=== PATIENT | female | born 1965 | race Caucasian/White ===

== ENCOUNTER → 2016-12-01 | Outpatient (CLI) | payer OTHER ==
[~2016-12-01] MED LIST: ACHYD1T PO; DCS100C PO; ESTR1TAB24 PO; FEXO-104 PO; IBP800T PO
--- NOTE | 2016-12-01 19:27 | Diagnostic Imaging Report ---
Bilateral screening mammogram The current study was also evaluated with a Computer Aided Detection (CAD) system. INDICATION: Screening. No current complaints stated on the questionnaire. COMPARISON: 11/27/2015. FINDINGS: The breasts are composed of scattered fibroglandular densities. There are punctate calcifications seen. Subcentimeter circumscribed mass in the outer aspect of the right breast is noted. Similarly, a smaller nodule is also seen in the lateral aspect of the left breast. Both are stable from prior exams and are likely related to benign etiology such as intramammary lymph nodes. Allowing for technique and positional differences, no suspicious change is seen. IMPRESSION: No significant change. ACR BI-RADS Category 2: Benign findings. Result letter will be mailed to the patient. Note: At least 10% of breast cancer is not imaged by mammography. Dictated by: Dictated on workstation # [id number]
== END ==
LOC: RAD 09:08
PROVIDERS: ATTEND Obstetrics & Gynecology
DX: Z12.31 Encounter for screening mammogram for malignant neoplasm of breast (principal)

== ENCOUNTER → 2017-12-19 | Outpatient (CLI) | payer OTHER ==
--- NOTE | 2017-12-20 09:25 | Diagnostic Imaging Report ---
INDICATION: Routine screening. Comparison is made with prior exam from 12/01/2016 and 11/27/2015. The current study was also evaluated with a Computer Aided Detection (CAD) system. Mild parenchymal densities noted bilaterally. Well-defined nodules in the upper outer aspects of both breasts are noted, stable in size and most consistent with intramammary lymph nodes. No spiculated mass or malignant appearing microcalcifications are seen. The axillae are unremarkable. IMPRESSION: BI-RADS category 2. No mammographic features suspicious for malignancy are identified. ACR BI-RADS Category 2: Benign findings. Result letter will be mailed to the patient. Note: At least 10% of breast cancer is not imaged by mammography. Dictated by: Dictated on workstation # [id number]
== END ==
LOC: RAD 14:37
PROVIDERS: ATTEND Obstetrics & Gynecology
DX: Z12.31 Encounter for screening mammogram for malignant neoplasm of breast (principal)
CPT/HCPCS: 77067